=== PATIENT | male | born 1980 | race Caucasian/White ===

== ENCOUNTER 2017-09-01 19:25 | Emergency (ER) | payer OTHER, BC ==
[~2017-09-01] VITALS: Ht 182.8 cm; Wt 122.5 kg
[~2017-09-01 19:25] MED LIST: APA PO; CELEBREX50 MG PO; DUEXIS 800-26.1 EACH PO; HYDROCODONE PO; MEDROL DOSEPAK4 MG PO; ZITHROMAX250 MG PO
== END 2017-09-01 22:39 | disposition home or self-care (01) ==
LOC: ED 19:25
DX: R05 Cough (principal); J30.2 Other seasonal allergic rhinitis; Z90.49 Acquired absence of other specified parts of digestive tract; Z87.01 Personal history of pneumonia (recurrent)

== ENCOUNTER 2019-09-15 11:08 | Emergency (ER) | payer BC ==
[~2019-09-15] VITALS: Ht 182.8 cm; Wt 129.3 kg
--- NOTE | ~2019-09-15 | EKG ---
[place], [place] ELECTROCARDIOGRAM REPORT NAME: TIFFANIE BURNETT UNIT #: [id number] ROOM: DOCTOR: EPIPHANY DRAFT REPORT BIRTHDATE: [birth year] [facility] Test Date: 2019-09-15 Test Time: 14:58:09 Pat Name: TIFFANIE BURNETT Department: Room: Gender: Incident Manager: : 1980 Requested By: KATINA ESCOBAR Order Number: [id number] Reading MD: Belle Pardo Measurements Intervals [place] Rate: 59 P: 24 HI: 130 QRS: 20 QRSD: 96 T: -12 QT: 471 QTc: 467 Interpretive Statements Sinus rhythm Borderline T abnormalities, inferior leads No previous ECG available for comparison Electronically Signed On 09-16-2019 7:55:24 PDT by Belle Pardo CM:EKGRPT:ELECTROCARDIOGRAM REPORT [id number] KATINA MCCORMACK DRAFT REPORT KATINA ESCOBAR MD
--- NOTE | ~2019-09-15 | EKG ---
[place], [place] ELECTROCARDIOGRAM REPORT NAME: TIFFANIE BURNETT UNIT #: [id number] ROOM: DOCTOR: ASHWINANY DRAFT REPORT BIRTHDATE: [birth year] [facility] Test Date: 2019-09-15 Test Time: 11:28:01 Pat Name: TIFFANIE BURNETT Department: Room: Gender: Travel [place]: : 1980 Requested By: KATINA ESCOBAR Order Number: [id number] Reading MD: Belle Pardo Measurements Intervals [place] Rate: 71 P: 17 HI: 129 QRS: 17 QRSD: 95 T: -6 QT: 430 QTc: 468 Interpretive Statements Sinus rhythm Borderline T abnormalities, inferior leads No previous ECG available for comparison Electronically Signed On 09-16-2019 7:51:08 PDT by Belle Pardo CM:EKGRPT:ELECTROCARDIOGRAM REPORT [id number] KATINA MCCORMACK DRAFT REPORT KATINA ESCOBAR MD
[2019-09-15 11:36] LABS: BASO % 0.4 % (0.0-1.0); EOS # 0.2 10*3/uL (0.0-0.4); HEMATOCRIT 46.1 % (42.0-52.0); HEMOGLOBIN 15.5 g/dl (14.0-18.0); LYMPH # 2.3 10*3/uL (1.3-4.4); LYMPH % 33.4 % (27.0-41.0); MEAN CELL VOLUME 92.2 fl (80.0-94.0); MEAN CORPUSCULAR HGB CONC 33.6 g/dl (33.0-37.0); MEAN PLATELET VOLUME 9.7 fl (9.6-12.3); MONO # 0.6 10*3/uL (0.1-1.0); MONO % 8.5 % (3.0-9.0); NEUT # 3.7 10*3/uL (2.3-7.9); NEUT % 54.3 % (47.0-73.0); PLATELET COUNT AUTOMATED 225 10*3/uL (130-400); RED CELL DISTRI WIDTH 12.9 % (0-14.5); WHITE BLOOD COUNT 6.7 10*3/uL (4.8-10.8)
[2019-09-15 11:46] LABS: ACT PARTIAL THROMBO TIME 24.2 SECONDS (20.0-32.1)
[2019-09-15 11:52] LABS: ALBUMIN 3.8 gm/dl (3.1-4.5); ALKALINE PHOSPHATASE 74 U/L (45-117); BUN 14 mg/dl (7-24); CHLORIDE 107 mmol/L (98-107); CREATININE 1.01 mg/dL (0.70-1.30); POTASSIUM 4.4 mmol/L (3.5-5.1); SGOT/AST 39 IU/L (3-35); SGPT/ALT 86 U/L (12-78); SODIUM 139 mmol/L (136-145)
[2019-09-15 11:58] LABS: TROPONIN I < 0.015 ng/ml (<0.045)
[2019-09-15] MEDS ORDERED: VISTARIL25 MG PO (13:38)
[2019-09-15] MEDS ORDERED: XANAX0.25 MG PO (13:38)
== END 2019-09-15 15:03 | disposition home or self-care (01) ==
LOC: ED 11:08
PROVIDERS: Emergency Medicine
DX: F41.9 Anxiety disorder, unspecified (principal); R07.89 Other chest pain

== ENCOUNTER → 2019-09-30 | Outpatient (CLI) | payer BC ==
[~2019-09-30] MED LIST changes: +VISTARIL25 MG PO; +XANAX0.25 MG PO
== END ==
LOC: US 06:29
DX: K76.0 Fatty (change of) liver, not elsewhere classified (principal); I10 Essential (primary) hypertension

== ENCOUNTER → 2020-11-20 | Outpatient (CLI) | payer BC | END | disposition home or self-care (01) | LOC: US 14:20 | PROVIDERS: ATTEND Internal Medicine | DX: N32.89 Other specified disorders of bladder (principal); R10.9 Unspecified abdominal pain ==

== ENCOUNTER 2021-05-24 17:27 | Emergency (ER) | payer BC ==
[~2021-05-24] VITALS: Ht 182.8 cm; Wt 131.5 kg
[2021-05-24 18:16] LABS: BILIRUBIN Negative (Negative); BLOOD Negative (Negative); CLARITY Clear (Clear); COLOR Yellow (Yellow); GLUCOSE Negative (Negative); KETONE Negative (Negative); LEUKO ESTERASE Negative (Negative); NITRITE Negative (Negative); SPECIFIC GRAVITY 1.015 (1.001-1.030); UROBILINOGEN 0.2 E.U./dl (0.0-1.0)
[2021-05-24 18:25] LABS: BACTERIA TRACE; EPITHELIAL CELLS 0-2; RBC 0-2 rbc/hpf (0-2)
[2021-05-24 18:46] LABS: BASO % 0.6 % (0.0-1.0); EOS # 0.2 10*3/uL (0.0-0.4); EOS % 3.2 % (1.0-4.0); HEMATOCRIT 46.5 % (42.0-52.0); LYMPH # 2.1 10*3/uL (1.3-4.4); LYMPH % 31.9 % (27.0-41.0); MEAN CELL VOLUME 86.8 fl (80.0-94.0); MEAN CORPUSCULAR HGB 29.1 pg (27.0-31.0); MEAN CORPUSCULAR HGB CONC 33.5 g/dl (33.0-37.0); MEAN PLATELET VOLUME 9.9 fl (9.6-12.3); MONO # 0.5 10*3/uL (0.1-1.0); MONO % 7.1 % (3.0-9.0); NEUT # 3.7 10*3/uL (2.3-7.9); PLATELET COUNT AUTOMATED 270 10*3/uL (130-400); RED BLOOD COUNT 5.36 10*6/uL (4.50-5.90); RED CELL DISTRI WIDTH 12.4 % (0-14.5); WHITE BLOOD COUNT 6.5 10*3/uL (4.8-10.8)
[2021-05-24 19:05] LABS: ALBUMIN 4.2 gm/dl (3.1-4.5); ALKALINE PHOSPHATASE 78 U/L (45-117); BUN 11 mg/dl (7-24); CHLORIDE 109 mmol/L (98-107); CREATININE 0.95 mg/dL (0.70-1.30); LIPASE 110 U/L (73-393); SGOT/AST 21 IU/L (3-35); SGPT/ALT 46 U/L (12-78); SODIUM 137 mmol/L (136-145); TOTAL PROTEIN 7.5 gm/dL (6.4-8.2)
[2021-05-24] MEDS ORDERED: PREDNISONE20 M1 PO (21:05)
[2021-05-24] MEDS ORDERED: METHOCARBAMOL500 M1 PO (21:05)
== END 2021-05-24 21:58 | disposition home or self-care (01) ==
LOC: ED 17:27
PROVIDERS: Physician Assistant
DX: M54.5 Low back pain (principal); R35.0 Frequency of micturition; R10.9 Unspecified abdominal pain; Z79.899 Other long term (current) drug therapy; Z96.22 Myringotomy tube(s) status

== ENCOUNTER 2023-03-26 08:14 | Emergency (ER) | payer BC ==
[~2023-03-26] VITALS: Wt 131.5 kg
[~2023-03-26 08:14] MED LIST changes: +METHOCARBAMOL500 M1 PO; +PREDNISONE20 M1 PO
[2023-03-26] MEDS ORDERED: HYDROCODONE-AC1 EAC1 PO (08:27)
[2023-03-26] MEDS ORDERED: CYCLOBENZAPRINE10 MG PO (08:27)
[2023-03-26] MEDS ORDERED: PREDNISONE50 MG PO (08:27)
== END 2023-03-26 08:38 | disposition home or self-care (01) ==
LOC: ED 08:14
DX: S39.012A Strain of muscle, fascia and tendon of lower back, initial encounter (principal); Z90.49 Acquired absence of other specified parts of digestive tract; X50.9XXA Other and unspecified overexertion or strenuous movements or postures, initial encounter; Y93.89 Activity, other specified; Y92.89 Other specified places as the place of occurrence of the external cause; Y99.8 Other external cause status

== ENCOUNTER → 2023-06-17 | Outpatient (CLI) | payer BC ==
[~2023-06-17] MED LIST changes: +CYCLOBENZAPRINE10 MG PO; +HYDROCODONE-AC1 EAC1 PO; +PREDNISONE50 MG PO
== END | disposition home or self-care (01) ==
LOC: CARD 01:24
PROVIDERS: ATTEND Internal Medicine
DX: R07.2 Precordial pain (principal)

== ENCOUNTER → 2024-12-05 | Outpatient (CLI) | payer OTHER | END | disposition home or self-care (01) | LOC: US 16:58 | PROVIDERS: ATTEND Internal Medicine | DX: M54.50 Low back pain, unspecified (principal) ==